=== PATIENT | male | born 1995 | race Caucasian/White ===

== ENCOUNTER 2017-11-25 14:53 | Emergency (ER) | payer SELFPAY ==
--- NOTE | 2017-11-25 15:06 | ER Document Report ---
ED General - General Stated Complaint: POSSIBLE OVERDOSE Time Seen by Provider: 11/25/17 15:02 Mode of Arrival: Wheelchair Information source: Patient Notes: This is a 22-year-old man who is dropped off in the emergency room with an altered mental status in the setting of overdose. Patient states that he has been doing IV heroin and IV meth amphetamine. He states he injected shortly before being brought to the hospital by his girlfriend. He states he was off drugs for 6 months and recently restarted. He denies being on any medicines. He denies any pain at this time. TRAVEL OUTSIDE OF THE [place] IN LAST 30 DAYS: No - HPI Onset: Just prior to arrival Onset/Duration: Gradual Quality of pain: No pain Associated symptoms: None Exacerbated by: Denies Relieved by: Denies Similar symptoms previously: Yes Recently seen / treated by doctor: No - Related Data Allergies/Adverse Reactions: divalproex sodium [From Depakote] Allergy (Verified 11/25/17 15:52) Pertussis Vaccines Allergy (Verified 11/25/17 15:52) Past Medical History - General Information source: Patient - Social History Smoking Status: Never Smoker Cigarette use (# per day): No Chew tobacco use (# tins/day): No Smoking Education Provided: No Frequency of alcohol use: None Drug Abuse: Heroin, Methamphetamine Lives with: Family Family History: Reviewed & Not Pertinent Patient has suicidal ideation: No Patient has homicidal ideation: No - Medical History Medical History: Negative Psychiatric Medical History: Reports: Hx Attention Deficit Hyperactivity Disorder, Hx Bipolar Disorder, Hx Depression Past Surgical History: Reports: Hx Herniorrhaphy, Hx Orthopedic Surgery - Immunizations Hx Diphtheria, Pertussis, Tetanus Vaccination: Yes Review of Systems - Review of Systems Constitutional: denies: Chills, Fever EENT: No symptoms reported Cardiovascular: No symptoms reported Respiratory: No symptoms reported Gastrointestinal: No symptoms reported Genitourinary: No symptoms reported Male Genitourinary: No symptoms reported Musculoskeletal: No symptoms reported Skin: No symptoms reported Hematologic/Lymphatic: No symptoms reported Neurological/Psychological: See HPI Physical Exam - Vital signs Vitals: Resp Pulse Ox 21 H 100 11/25/17 14:59 11/25/17 14:59 Notes: Physical exam: GENERAL: 22-year-old man, lethargic, altered but answering questions. His blood pressure is 120/70 and his pulse is 109, his O2 sat is 99% on 2 L. His color is good HEAD: Atraumatic, normocephalic. EYES: Pupils equal round and reactive to light, extraocular movements intact, sclera anicteric, conjunctiva are normal. ENT: TMs normal, nares patent, oropharynx clear without exudates. Moist mucous membranes. NECK: Normal range of motion, supple without obvious mass or JVD. LUNGS: Breath sounds clear to auscultation bilaterally and equal. No wheezes rales or rhonchi. HEART: Regular rate and rhythm without murmurs, rubs or gallops. ABDOMEN: Soft, normoactive bowel sounds. No tenderness to palpation. No guarding, no rebound. No masses appreciated. EXTREMITIES: Normal range of motion, no pitting or edema. No clubbing or cyanosis. NEUROLOGICAL: Lethargic, moving all extremities, altered. His GCS is 15: His eyes are open, he is moving all of his extremities and he is answering questions. PSYCH: He denies any suicidal or homicidal ideation SKIN: Warm, Dry, normal turgor, no rashes or lesions noted. Course - Re-evaluation Re-evalutation: 11/25/17 17:30 Patient is accompanied by his girlfriend he states he is back to baseline. He is requesting to leave so he can go any. His labs are acceptable. I have encouraged him to drink plenty of fluids. I have had a discussion with him about heroin earlier and seeking a rehab program. - Vital Signs Vital signs: Temp Pulse Resp BP Pulse Ox 97.4 F 20 129/97 H 100 11/25/17 17:31 11/25/17 17:31 11/25/17 17:31 11/25/17 17:31 - Laboratory Result Diagrams: 11/25/17 14:54 11/25/17 14:54 Laboratory results interpreted by me: 11/25/17 11/25/17 11/25/17 14:54 14:54 14:54 WBC 13.6 H Lymphocytes % 8.9 L Absolute Neutrophils 10.6 H Absolute Monocytes 1.7 H Carbon Dioxide 20 L BUN 24 H Creatinine 1.34 H Direct Bilirubin 0.5 H Creatine Kinase 527 H CK-MB (CK-2) 4.94 H - Diagnostic Test Radiology reviewed: Image reviewed, Reports reviewed - Test x-ray shows no infiltrates or effusions. - EKG Interpretation by Mi Rate: Tachycardia Rhythm: NSR - He shows sinus tachycardia with a ventricular rate of 109, no acute ST-T wave changes Discharge - Discharge Clinical Impression: Opiate overdose Condition: Stable Disposition: HOME, SELF-CARE Additional Instructions: As of 2017, the [place] Division of Public Health recommends the precription of Narcan (Naloxone) to patient's discharged after an opiod overdose. Naloxone is an injection that reverses the respiratory depression caused by opiates and is life-saving in many cases. Of course, it is recommended that you stop any narcotic or opiate use/abuse. However, if this is not possible, you should always carry the Naloxone with you and let family/friends know that you have this reversal antidote. Information on Naloxone can be found on: www.naloxonesaves.org Additionally: If you are using syringes with drug use, you should know that syringe exchange programs are effective in reducing the rates of HIV and Hepatitis C. Information available for syring programs can be found at: www/[facility].gov/divisions/public-health/tbgmt-mvtvqnie-gnctw-syringe-initiative/ rwcwzi-kiocqnxj-vhnfzhwb-eidson Prescriptions: Naloxone HCl 0.4 mg IJ ONCE PRN #1 ml PRN Reason:
--- NOTE | 2017-11-25 15:12 | RADIOLOGY REPORT (SQ) ---
EXAM DESCRIPTION: CHEST SINGLE VIEW COMPLETED DATE/TIME: 11/25/2017 3:05 pm REASON FOR STUDY: od COMPARISON: 09/08/2012. EXAM PARAMETERS: NUMBER OF VIEWS: One view. TECHNIQUE: Single frontal radiographic view of the chest acquired. RADIATION DOSE: NA LIMITATIONS: None. FINDINGS: LUNGS AND PLEURA: No opacities, masses or pneumothorax. No pleural effusion. MEDIASTINUM AND HILAR STRUCTURES: No masses. Contour normal. HEART AND VASCULAR STRUCTURES: Heart normal in size. Normal vasculature. BONES: No acute findings. HARDWARE: None in the chest. OTHER: No other significant finding. IMPRESSION: NO ACUTE RADIOGRAPHIC FINDING IN THE CHEST. TECHNICAL DOCUMENTATION: JOB ID: [id number] [employer]- All Rights Reserved Reading location - IP/workstation name: [email or web address]
[2017-11-25 15:13] LABS: ABSOLUTE BASOPHILS # (AUTO) 0.1 10^3/uL (0.0-0.2); ABSOLUTE EOSINOPHILS # (AUTO) 0.1 10^3/uL (0.0-0.6); ABSOLUTE LYMPHOCYTES (AUTO) 1.2 10^3/uL (0.5-4.7); ABSOLUTE MONOCYTES (AUTO) 1.7 10^3/uL (0.1-1.4); ABSOLUTE NEUT (AUTO) 10.6 10^3/uL (1.7-8.2); BASOPHILS % (AUTO) 0.6 % (0-2); EOSINOPHILS % (AUTO) 0.4 % (0-6); HEMATOCRIT 43.9 % (37.9-51.0); HEMOGLOBIN 15.2 g/dL (13.5-17.0); LYMPHOCYTES % (AUTO) 8.9 % (13-45); MEAN CORPUSCULAR HEMOGLOBIN 30.5 pg (27.0-33.4); MEAN CORPUSCULAR HGB CONC 34.7 g/dL (32.0-36.0); MEAN CORPUSCULAR VOLUME 88 fl (80-97); MONOCYTES % (AUTO) 12.2 % (3-13); PLATELET COUNT 316 10^3/uL (150-450); RED BLOOD COUNT 4.99 10^6/uL (4.35-5.55); RED CELL DISTRIBUTION WIDTH 12.7 % (11.5-14.0); SEGMENTED NEUTROPHILS % (AUTO) 77.9 % (42-78); TOTAL CELLS COUNTED % (AUTO) 100 %; WHITE BLOOD COUNT 13.6 10^3/uL (4.0-10.5)
[2017-11-25 15:44] LABS: ALANINE AMINOTRANSFERASE 58 U/L (21-72); ALBUMIN 4.5 g/dL (3.5-5.0); ALKALINE PHOSPHATASE 116 U/L (38-126); ANION GAP 16 (5-19); ASPARTATE AMINO TRANSFERASE 47 U/L (17-59); BILIRUBIN,DIRECT 0.5 mg/dL (0.0-0.4); BILIRUBIN,TOTAL 1.3 mg/dL (0.2-1.3); BLOOD UREA NITROGEN 24 mg/dL (7-20); CALCIUM 9.6 mg/dL (8.4-10.2); CARBON DIOXIDE 20 mmol/L (22-30); CHLORIDE 103 mmol/L (98-107); CREATINE KINASE 527 U/L (55-170); GLUCOSE 93 mg/dL (75-110); POTASSIUM 3.7 mmol/L (3.6-5.0); SODIUM 138.8 mmol/L (137-145); TOTAL PROTEIN 7.6 g/dL (6.3-8.2)
[2017-11-25 15:45] LABS: ALCOHOL < 10 mg/dL (NONE DETECTED)
[2017-11-25 15:55] LABS: CREATINE KINASE MB 4.94 ng/mL (<4.55)
[2017-11-25 15:57] LABS: TROPONIN I < 0.012 ng/mL
[2017-11-25] MEDS ORDERED: NALOXONE HCL INJ 2 MG/2 ML DISP.SYRIN ONE (16:18)
[2017-11-25 18:06] VITALS: BP 129/97
--- NOTE | 2017-11-27 16:22 | EKG REPORT ---
SEVERITY:- BORDERLINE ECG - SINUS TACHYCARDIA PROBABLE LEFT ATRIAL ABNORMALITY : Confirmed by: Ana Harkins MD 27-Nov-2017 16:21:31
== END 2017-11-25 17:43 | disposition home or self-care (01) ==
LOC: ER 14:53
DX: T40.601A Poisoning by unspecified narcotics, accidental (unintentional), initial encounter (principal); T43.621A Poisoning by amphetamines, accidental (unintentional), initial encounter; Y92.9 Unspecified place or not applicable
CPT/HCPCS: 36415; 71045; 80053; 80307; 82550; 82553; 84484; 85025; 93005; 93010; 99284